=== PATIENT | male | born 1950 | race Caucasian/White ===

== ENCOUNTER 2023-03-15 22:03 | Emergency (ER) | payer MEDICARE, SELFPAY ==
[2023-03-15 22:04] VITALS: BP 114/76; PULSE 86; RESP 16; TEMP 36.6; O2SAT 98; BMI 26.5
--- NOTE | 2023-03-15 22:36 | CT_ITS ---
INDICATION: GI bleed EXAMINATION: CT ABDOMEN AND PELVIS WITH CONTRAST TECHNIQUE: Helically acquired images were obtained of the abdomen and pelvis with sagittal and coronal reconstructed images. Images were obtained following the administration of a single phase of IV contrast. No noncontrast images were obtained. Individualized dose optimization techniques were used for this CT. IV contrast dosage and agent: 100 mL of Isovue-370. Oral contrast: None. COMPARISON: None. FINDINGS: VESSELS: No abdominal aortic aneurysm or dissection. LIVER: Numerous hepatic cysts. Hepatomegaly. No intrahepatic or extrahepatic biliary duct dilation. GALLBLADDER: No calcified stones. No evidence of cholecystitis. PANCREAS: No focal solid or cystic mass. No evidence of pancreatitis. SPLEEN: Normal. ADRENAL GLANDS: Normal. KIDNEYS AND URETERS: Bilateral renal stones. No hydronephrosis or hydroureter. No significant asymmetric perinephric stranding. URINARY BLADDER: Unremarkable. BOWEL: Diverticulosis with no evidence of diverticulitis. Appendix appears normal. No evidence of bowel obstruction. REPRODUCTIVE ORGANS: Enlarged prostate. PERITONEUM: No intraabdominal free fluid or free air. LYMPH NODES: No pathologically enlarged mesenteric or retroperitoneal lymph nodes. ABDOMINAL WALL: No abdominal or pelvic wall hernia. BONES: No acute abnormality. LOWER CHEST: Visualized lung bases are unremarkable. CT/CTA Abd/Pelvis W/WO Contrast IMPRESSION: 1. No acute abnormality. 2. No evidence of a gastrointestinal bleed. 3. Diverticulosis with no evidence of diverticulitis. 4. Enlarged prostate. 5. Nonobstructing bilateral renal stones. Electronically Signed: Jeramie Izquierdo DO at 23:57 EDT ,
--- NOTE | 2023-03-15 22:38 | ED.RN ---
1 liter normal saline infused, started by EMS.
[2023-03-15 22:39] LABS: Absolute Lymphocyte Count 3.16 X10^3/uL (0.83-4.51); Basophil# 0.09 X10^3/uL; Basophil% 1.1 % (0-1); Eosinophil# 0.27 X10^3/uL; Eosinophils% 3.3 % (0-5); Hematocrit 33.8 % (40-54); Hemoglobin 10.9 g/dL (13.0-16.5); Lymphocyte # 3.16 X10^3/ul (0.83-4.51); Lymphocyte % 38.1 % (19-41); Mean Corp Hgb Conc 32.2 g/dL (32-36); Mean Corpuscular Volume 93.1 fL (80-94); Monocyte# 0.75 X10^3/uL; NRBC Flagged by Analyzer 0 % (0-5); Neutrophil % 48.1 % (47-70); Platelet Count 214 K/mm3 (150-450); RBC Distribution Width CV 12.7 % (11.6-14.6); RBC Distribution Width SD 43.5 fl (35.1-43.9); Red Blood Count 3.63 M/mm3 (4.6-6.2); White Blood Count 8.3 K/mm3 (4.4-11.0)
[2023-03-15 22:46] LABS: International Normalized Ratio 1.2; Prothrombin Time (Protime)PT. 15.3 SECONDS (11.7-14.9)
[2023-03-15 22:48] LABS: Partial Thromboplast Time 24.2 Seconds (24.1-36.2)
[2023-03-15 22:54] LABS: AST(SGOT) 14 U/L (15-37); Alanine Aminotransfer ALT/SGPT 17 U/L (16-61); Albumin, Serum 2.7 g/dL (3.2-5.0); Alkaline Phosphatase 60 U/L (45-117); Anion Gap 4 (5-15); BUN 19 mg/dL (7-18); BUN/Creat Ratio 12.8 RATIO (10-20); Bilirubin, Direct 0.18 mg/dL (0.00-0.30); Calcium,Total 7.3 mg/dL (8.5-10.1); Chloride 110 mmol/L (98-107); Creatinine, Serum 1.48 mg/dL (0.70-1.30); EST Glomerular Filtration Rate 50 mL/min (>60); Est Glom Filt Rate - Afr Amer 60 mL/min (>60); Estimated Creatinine Clearance 47.35 ml/min; Globulin 2.7 g/dL (2.2-4.2); Glucose 189 mg/dL (74-106); Potassium 4.5 mmol/L (3.5-5.1); Protein, Total 5.4 g/dL (6.4-8.2); Sodium Level 140 mmol/L (136-145)
[2023-03-15 23:24] VITALS: BP 120/77; PULSE 88; RESP 16; O2SAT 97
[2023-03-16 00:02] VITALS: BP 101/62
[2023-03-16 00:37] VITALS: BP 104/62
--- NOTE | 2023-03-16 00:39 | EDS_ITS ---
HPI History of Present Illness Chief Complaint: GI Bleed Narrative Narrative: Patient is a 72-year-old male with past medical history of BPH and hyperlipidemia. He states that this evening he had bouts of bloody stool per rectum that occurred from the hours of approximately 730/8 PM until roughly 10 PM. He states that he does not take blood thinners nor does he have a bleeding disorder. He states that EMS was called because after having a bloody bowel movement he felt lightheaded dizzy and reported he appeared clammy and looked as if he was going to pass out. Upon arrival to the ER patient states he feels much better but with the bright red blood per rectum that he exp erienced at home presents for evaluation [facility] Medical History (Updated 03/16/23 @ 00:[address] Maikel Trimble DO) BPH (benign prostatic hyperplasia) Chronic rhinitis Former tobacco use History of colon polyps Hyperlipidemia Medical History no medical history Home Medications sildenafil 50 mg tablet (Viagra) 50 mg PO DAILY PRN sexual activity 03/15/23 [History Last Taken Unknown] simvastatin 20 mg tablet 20 mg PO QHS 03/15/23 [History Last Taken Unknown] terazosin 1 mg capsule 1 mg PO QHS 03/15/23 [History Last Taken Unknown] Allergy/AdvReac Type Severity Reaction Status Date / Time No Known Allergies Allergy Verified 03/15/23 22:04 Surgical History no surgical history Social History (Updated 03/15/23 @ 22:[address] China Weber MD) household members: spouse Smoking Status: Former smoker how long ago did patient quit smoking: Smoked 1 ppd [id number]. alcohol intake: never substance use type: does not use ROS ROS ED Constitutional Constitutional ED: Denies chills or fever(s) Eyes Eyes: Denies change in vision ENT ENT ED: Denies sore throat Cardiovascular Cardiovascular: Denies chest pain, palpitations or racing heartbeat Respiratory/Chest Respiratory/Chest: Denies cough or dyspnea Gastrointestinal Gastrointestinal: Reports other Details: Positive bright red blood per rectum ; Denies abdominal pain, diarrhea, nausea or vomiting Genitourinary Genitourinary ED: Denies dysuria or hematuria Musculoskeletal Musculoskeletal: Denies myalgias Integumentary Denies rash Neurologic Neurologic: Denies headache(s) Hematologic/Lymphatic Hematologic/Lymphatic: Denies easy bleeding or easy bruising EXAM Physical Exam Const Vital Signs: 03/15/23 22:04 03/15/23 23:24 03/16/23 00:02 Temperature 97.8 F Temperature Source Oral Pulse Rate 86 88 Respiratory Rate 16 16 Blood Pressure 114/76 120/77 101/62 Blood Pressure Mean 88 91 75 Pulse Ox 98 97 Oxygen Delivery Method Room Air Room Air 03/16/23 00:37 Temperature Temperature Source Pulse Rate Respiratory Rate Blood Pressure 104/62 Blood Pressure Mean 76 Pulse Ox Oxygen Delivery Method Positive well nourished and well developed General Appearance ED: well developed; Negative for pallor HEENT Reports moist mucous membranes Eyes PERRL and EOMs intact bilaterally General Eye ED: Negative for pale conjunctiva or scleral icterus Neck supple Resp normal respiratory effort and clear to auscultation bilaterally Cardio regular rate and regular rhythm Rate: other Other Details: Radial and carotid pulses equal and symmetric GI normal to inspection, nondistended, normoactive bowel sounds, non-tender, non- distended and no masses GI Narrative: No voluntary guarding or rigidity. No pulsatile mass or fluid wave Auscultation: normoactive bowel sounds Palpation: soft Narrative: Rectal exam shows a nonthrombosed nonbleeding external hemorrhoid. No anal fissure noted. Internal exam demonstrates an enlarged prostate consistent with history of BPH. Rectal tone is normal. stool is maroon in color and Hemoccult positive. Extremity normal to inspection Neuro oriented x3, CN's II-XII intact bilaterally and no sensory deficits noted Sensorium / Orientation: alert Motor Exam: strength 5/5 throughout Psych mental status grossly normal Skin no rashes or lesions noted General Skin Exam: Negative for jaundice or pallor MDM MDM MDM Narrative Medical decision making narrative: Patient presented to the ER with stable vitals. He reported multiple episodes of bright red blood per rectum over the past 2 hours but since arrival to the ER has stopped he denies any history of bleeding disorder or blood thinner use. Differential diagnosis is a brisk upper GI bleed versus diverticular bleeding versus colitis or diverticulitis. Patient blood work was obtained which shows a stable hemoglobin at approximately 11 with normal platelets and bleeding times. CTA revealed no signs of active bleeding. His rectal exam showed only a scant amount of stool in the rectal vault without active blood oozing from the rectum. The patient was ambulated and was able to walk with a steady gait. At this time the patient is not requiring a blood transfusion his CTA reveals no signs of active bleeding and his physical exam correlates with this as there is minimal stool/blood within the rectal vault and he is not having any difficulty standing or walking. Therefore as patient is hemodynamically stable and it appears his bleeding has spontaneously resolved do not feel there is need for emergent GI admission or endoscopy and is otherwise safe for discharge History & Record Review Discussion w/independent historian: Patient and Significant other Lab Data Attestation: I reviewed the patient's lab results. Labs: Laboratory Results - last 24 hr 03/15/23 22:30 WBC 8.3 RBC 3.63 L Hgb 10.9 L Hct 33.8 L MCV 93.1 MCH 30.0 MCHC 32.2 RDW Std Deviation 43.5 RDW Coeff of Haylie 12.7 Plt Count 214 MPV 10.0 Immature Gran % (Auto) 0.400 Neut % (Auto) 48.1 Lymph % (Auto) 38.1 [place] % (Auto) 9.0 Eos % (Auto) 3.3 Baso % (Auto) 1.1 H Absolute Neuts (auto) 4.0 Absolute Lymphs (auto) 3.16 Nucleated RBC % 0 PT 15.3 H INR 1.2 APTT 24.2 Sodium 140 Potassium 4.5 Chloride 110 H Carbon Dioxide 26.0 Anion Gap 4 L BUN 19 H Creatinine 1.48 H Estim Creat Clear Calc 47.35 Est GFR (MDRD) Af Amer 60 Est GFR (MDRD) Non-Af 50 L BUN/Creatinine Ratio 12.8 Glucose 189 H Calcium 7.3 L Total Bilirubin 0.60 Direct Bilirubin 0.18 AST 14 L ALT 17 Alkaline Phosphatase 60 Total Protein 5.4 L Albumin 2.7 L Globulin 2.7 Radiography Diagnostic Testing: Clinical Impression(s) from Imaging Studies Abdomen/Pelvis CTA 03/15/23 22:36 IMPRESSION: 1. No acute abnormality. 2. No evidence of a gastrointestinal bleed. 3. Diverticulosis with no evidence of diverticulitis. 4. Enlarged prostate. 5. Nonobstructing bilateral renal stones. Electronically Signed: Jeramie Izquierdo DO at 23:57 EDT , Discharge Plan Triage Chief Complaint: GI Bleed ED Provider: Maikel Trimble Dx/Rx/DC Orders Clinical Impression: Diverticulosis, Acute lower gastrointestinal bleeding Instructions: ED Lower GI Bleeding (Stable), ED Diverticulosis Prescriptions: No Action simvastatin 20 mg tablet 20 mg PO QHS terazosin 1 mg capsule 1 mg PO QHS sildenafil [Viagra] 50 mg tablet 50 mg PO DAILY PRN (Reason: sexual activity) Rx Instructions: administer 30 minutes to 4 hours before activity Primary Care Provider: [facility] Referrals[place] [Primary Care Provider] - Activity Restrictions/Additional Instructions: Your work-up today showed that your hemoglobin is stable at 11 and that you have diverticulosis without infection or signs of active bleeding. Follow-up with your family doctor to discuss GI referral for outpatient colonoscopy. If you develop dizziness/passing out with standing or have increased bleeding or abdominal pain please return to the hospital for repeat evaluation Disposition Disposition: Home, Self Care Discharge Date/Time: 03/16/23 00:46
== END 2023-03-16 00:46 | disposition home or self-care (01) ==
PROVIDERS: Emergency Provider Emergency Medicine; Visit Provider Emergency Medicine
DX: K57.91 Diverticulosis of intestine, part unspecified, without perforation or abscess with bleeding (principal); E78.5 Hyperlipidemia, unspecified; Z87.891 Personal history of nicotine dependence
CPT/HCPCS: 74174; 80048; 80076; 82274; 85025; 85610; 85730; 99284; Q9967; A4216